=== PATIENT | male | born 1965 | race Caucasian/White ===

== ENCOUNTER 2021-10-13 09:19 | Emergency (ER) | payer OTHER ==
[~2021-10-13] VITALS: Ht 177.8 cm; Wt 127.9 kg
[2021-10-13] MEDS ORDERED: Vistaril25 MG PO (09:50)
[2021-10-13] MEDS ORDERED: HYDCHL12.5 PO (09:50)
== END 2021-10-13 10:01 | disposition home or self-care (01) ==
LOC: ER 09:19
DX: L50.0 Allergic urticaria (principal); T46.1X5A Adverse effect of calcium-channel blockers, initial encounter; T46.5X5A Adverse effect of other antihypertensive drugs, initial encounter
CPT/HCPCS: A9270; J1100